=== PATIENT | female | born 2000 | race African-American/Black ===

== ENCOUNTER 2024-05-05 20:01 | Emergency (ER) | payer OTHER, SELFPAY ==
[2024-05-05] MEDS ORDERED: HYDROcodone/Acetaminophen 10/325 mg Tablet ONE (21:34)
== END 2024-05-05 21:40 | disposition home or self-care (01) ==
LOC: NAV ERS 20:01
DX: S20.212A Contusion of left front wall of thorax, initial encounter (principal); S20.412A Abrasion of left back wall of thorax, initial encounter; V00.831A Fall from motorized mobility scooter, initial encounter; Y93.55 Activity, bike riding